=== PATIENT | female | born 1965 | race Caucasian/White ===

== ENCOUNTER 2017-02-01 17:35 | Emergency (ER) | payer OTHER ==
[2017-02-01 17:35] VITALS: BMI 36.6
[2017-02-01 17:48] VITALS: BP 161/93; PULSE 81; RESP 18; TEMP 98.1; O2SAT 100
[2017-02-01] MEDS ORDERED: Naproxen 500 MG TAB PO STA (18:06)
--- NOTE | 2017-02-01 18:16 | ED PDOC ---
Lower Extremity Pain/Injury Time Seen by Provider: 02/01/17 18:08 Chief Complaint (Nursing): Lower Extremity Problem/Injury Chief Complaint (Provider): Lower Extremity Problem/Injury History Per: Patient History/Exam Limitations: no limitations Onset/Duration Of Symptoms: Days Current Symptoms Are (Timing): Still Present Severity: Moderate Additional Complaint(s): Patient is a 51 year old female who presents to ED for evaluation of lower back pain and bilateral anterior upper thigh pain for 1 month. Patient states pain was present but tolerable until a few days ago when she stood up abruptly causing pain to worsen. Patient denies and trauma or falls. States taking Tylenol with no relief, last dose yesterday. Pain is described as burning but denies any rash Past Medical History Reviewed: Historical Data, Nursing Documentation, Vital Signs Vital Signs: Last Vital Signs Temp 98.1 F 02/01/17 17:45 Pulse 81 02/01/17 17:45 Resp 18 02/01/17 17:45 BP 161/93 H 02/01/17 17:45 Pulse Ox 100 02/01/17 17:45 - Medical History PMH: HTN - Surgical History Surgical History: No Surg Hx - Family History Family History: States: Unknown Family Hx - Living Arrangements Living Arrangements: With Family - Home Medications Home Medications: Ambulatory Orders Medication Instructions Recorded Ibuprofen [Motrin] 1 tab PO Q8 PRN #30 tab 08/26/16 Nitrofurantoin Macrocrystal 1 tab PO BID #14 capsule 08/26/16 [Nitrofurantoin] Tramadol HCl/Acetaminophen 1 tab PO Q6 PRN #12 tablet 08/26/16 [Ultracet Tablet] Naproxen [Naprosyn Tab] 1 tab PO Q8 PRN #21 tab 02/01/17 diaZEpam [Valium] 5 mg PO Q6 PRN #5 tab 02/01/17 - Allergies Allergies/Adverse Reactions: Allergies Allergy/AdvReac Type Severity Reaction Status Date / Time No Known Allergies Allergy Verified 02/01/17 17:45 Review of Systems Constitutional: Negative for: Fever, Weakness Cardiovascular: Negative for: Chest Pain Musculoskeletal: Positive for: Back Pain, Leg Pain Skin: Positive for: Rash Neurological: Negative for: Weakness, Numbness, Dizziness Physical Exam - Reviewed Nursing Documentation Reviewed: Yes Vital Signs Reviewed: Yes - Physical Exam Appears: Positive for: Non-toxic, No Acute Distress Skin: Positive for: Normal Color, Warm Eye Exam: Positive for: Normal appearance Neck: Positive for: Normal Back: Positive for: Normal Inspection, Other (Paraspinal tenderness, (+) striaght leg raise at 45 degrees ) Extremity: Positive for: Normal ROM. Negative for: Calf Tenderness Neurologic/Psych: Positive for: Alert, Oriented. Negative for: Motor/Sensory Deficits - ECG O2 Sat by Pulse Oximetry: 100 (RA) Pulse Ox Interpretation: Normal Medical Decision Making Medical Decision Making: Time: 1807 Initial Impression: Sciatica Initial Plan: -- Naproxen PO -- Valium PO Discussed today's findings with patient. All questions answered and patient expressed understanding. Stable for discharge. Attestation: Documented by Lani Garrett acting as a scribe for Radha Rowland PA-C. Provider Scribe Attestation: All medical record entries made by the Scribe were at my direction and personally dictated by me. I have reviewed the chart and agree that the record accurately reflects my personal performance of the history, physical exam, medical decision making, and the department course for this patient. I have also personally directed, reviewed, and agree with the discharge instructions and disposition. Disposition - Clinical Impression Clinical Impression: Sciatica - Patient ED Disposition Is Patient to be Admitted: No - Disposition Referrals: [facility] [Outside] Disposition: Routine/Home Disposition Time: 19:48 Condition: FAIR Prescriptions: Naproxen [Naprosyn Tab] 1 tab PO Q8 PRN #21 tab PRN Reason: Pain, Moderate (4-7) diaZEpam [Valium] 5 mg PO Q6 PRN #5 tab PRN Reason: Muscle Spasm Instructions: Sciatica (ED) Forms: [facility] ED School/Work Excuse Print Language: LAO
== END 2017-02-01 19:51 | disposition home or self-care (01) ==
LOC: H.ER 17:35
DX: M54.30 Sciatica, unspecified side (principal)

== ENCOUNTER 2018-06-03 18:32 | Emergency (ER) | payer OTHER ==
[2018-06-03 18:44] VITALS: RESP 16; TEMP 97.7; BMI 40.7
[2018-06-03] MEDS ORDERED: Tdap Vaccine 0.5 ml Vial (10-64 yrs) IM ONE ×2 (19:06→20:08)
--- NOTE | 2018-06-03 19:20 | ED PDOC ---
HPI: Trauma/Fall - HPI Time Seen by Provider: 06/03/18 18:49 Chief Complaint (Nursing): Trauma Chief Complaint (Provider): Trauma History Per: Patient, Family (daughter) History/Exam Limitations: no limitations Onset/Duration Of Symptoms: Mins (prior to arrival) Additional Complaint(s): 52 year old female presents to the ED with daughter for evaluation of injuries s /p a trip and fall incident. As per daughter, prior to arrival, patient was walking out of her house when she tripped and fell landing on her forehead and bilateral knees. She sustained a small abrasion to her forehead with bruising associated with mild dizziness, a 5/10 frontal headache, and bilateral knee pain right greater than left. Patient denies taking anticoagulants or any medications. Otherwise, (-) loss of consciousness, (-) nausea, (-) vomiting, (- ) chest pain, (-) abdominal pain, (-) vision changes, (-) hx of knee injury/ surgery (-) cough. Tetanus not up to date. LNMP: x3 weeks ago PMD: Jostin Rowland Past Medical History Reviewed: Historical Data, Nursing Documentation, Vital Signs Vital Signs: Last Vital Signs Temp 97.7 F 06/03/18 18:43 Pulse 86 06/03/18 18:43 Resp 16 06/03/18 18:43 BP 151/98 H 06/03/18 18:43 Pulse Ox 97 06/03/18 18:43 - Medical History PMH: HTN, Migraine - Surgical History Surgical History: Cholecystectomy - Family History Family History: States: Unknown Family Hx - Social History Current smoker - smoking cessation education provided: No Alcohol: None Drugs: Denies - Immunization History Hx Tetanus Toxoid Vaccination: No - Home Medications Home Medications: Ambulatory Orders Medication Instructions Recorded Ibuprofen [Motrin] 1 tab PO Q8 PRN #30 tab 08/26/16 Nitrofurantoin Macrocrystal 1 tab PO BID #14 capsule 08/26/16 [Nitrofurantoin] Tramadol HCl/Acetaminophen 1 tab PO Q6 PRN #12 tablet 08/26/16 [Ultracet Tablet] Naproxen [Naprosyn Tab] 1 tab PO Q8 PRN #21 tab 02/01/17 diaZEpam [Valium] 5 mg PO Q6 PRN #5 tab 02/01/17 Acetaminophen [Acetaminophen 8 650 mg PO Q8 #21 tablet.er 06/03/18 Hour] Meloxicam [Mobic] 15 mg PO DAILY #10 tab 06/03/18 - Allergies Allergies/Adverse Reactions: Allergies Allergy/AdvReac Type Severity Reaction Status Date / Time No Known Allergies Allergy Verified 06/03/18 18:43 Review of Systems ROS Statement: Except As Marked, All Systems Reviewed And Found Negative Eyes: Negative for: Vision Change Cardiovascular: Negative for: Chest Pain Gastrointestinal: Negative for: Nausea, Vomiting, Abdominal Pain Musculoskeletal: Positive for: Leg Pain (right knee pain worse than left) Skin: Positive for: Other (abrasion to mid forehead with bruising) Neurological: Positive for: Headache (frontal 5/10), Dizziness (mild). Negative for: Other (loss of consciousness) Physical Exam - Reviewed Nursing Documentation Reviewed: Yes Vital Signs Reviewed: Yes - Physical Exam Comments: GENERAL APPEARANCE: Patient is awake, alert, oriented x 3, in no acute distress. Patient is ambulatory in the ED. SKIN: Warm, dry; (-) cyanosis. HEAD: (-) palpable bony defect. (+) 2cm x 2cm hematoma to mid forehead with a central 2 mm abrasion, (+) localized tenderness (-) active bleeding EYES: (-) conjunctival pallor, (-) scleral icterus, (-) nystagmus. (-) periorbital tenderness, ecchymosis, or edema ENMT: Mucous membranes moist. Nose: (-) tenderness. No oral trauma, dentition intact and nontender. Pharynx clear, uvula midline. Airway patent: (-) stridor. Full ROM of mandible without pain. NECK: Supple, FROM (-) paracervical tenderness, (-) vertebral tenderness, (-) lymphadenopathy. CHEST AND RESPIRATORY: (-) chest wall tenderness. Lungs: (-) rales, (-) rhonchi , (-) wheezes; breath sounds equal bilaterally. Respirations even and nonlabored. HEART AND CARDIOVASCULAR: (-) irregularity; (-) murmur ABDOMEN AND GI: Soft; (-) tenderness (-) guarding (-) distention. BACK: (-) midline tenderness. LOWER EXTREMITIES: Left knee: Full ROM, (-) tenderness, (-) ecchymosis, (-) erythema. Right knee: (+) diffuse tenderness to anterior knee, full ROM but pain on flexion (-) ecchymosis, (-) erythema. Distal pulses 2+. Sensation intact throughout. NEURO AND PSYCH: GCS=15. Mental status as above. 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 EOMI and painless. (-) facial asymmetry. Tongue midline. Strength 5/5 in all extremities. No gross sensory deficits. Gait steady , speech clear. - ECG O2 Sat by Pulse Oximetry: 97 (RA) Pulse Ox Interpretation: Normal Medical Decision Making Medical Decision Making: Time: 1903 Initial Impression: facial and knee contusion s/p fall, closed head injury, abrasion Initial Plan: --CT head w/o contrast --CT maxillofacial w/o contrast --Right knee XR --Tetanus booster --Tylenol 650 mg PO --Re-evaluation 1957 XR knee: no fracture, no dislocation, as read by PA. Patient advised that official radiology read of XR is still pending and will call the patient if there is any discrepancy within [address] Head FINDINGS: Brain: No intracranial hemorrhage. No evidence of evolved territorial infarct or cerebral edema. No mass effect or midline shift. Ventricles: Unremarkable. No ventriculomegaly. Bones/joints: No acute osseous abnormality. Soft tissues: Mild frontal soft tissue swelling. Sinuses: Visualized paranasal sinuses are clear. Mastoid air cells: Trace right mastoid air cell opacification. IMPRESSION: No acute intracranial findings. 2013 CT Maxillofacial FINDINGS: Bones/joints: No acute osseous abnormality. Soft tissues: Mild frontal soft tissue swelling. Orbits: Unremarkable. Sinuses: Mild mucosal thickening of the left maxillary sinus. No air-fluid levels. IMPRESSION: No facial fracture. Axial images are not provided at time of initial preliminary interpretation. Interpretation is based on coronal and sagittal reformatted images. An addendum will be added if/when additional images become available. Addendum created by Helder Marrufo MD on 06/03/2018 8:35 PM Eastern Time ([place] & [place]) Axial source images are now available and reviewed. No additional findings. Initial Report created on 06/03/2018 8:14 PM Eastern Time ([place] & [place]) 2044 Forehead abrasion irrigated with normal saline. Bacitracin and Bandaid applied. HUI bandage applied to right knee by ED staff. Placement and application verified by Dpahne NEWTON. NV intact after placement. Repeat BP: 143/81 Repeat HR: 77 On re-evaluation, patient reports improvement of symptoms. Ambulating in ED with steady, unassisted gait. On exam, patient remains AAOx3, in no acute distress. Neck is supple, lungs CTA, cardiac RRR, abdomen is soft and non-tender , neuro exam shows no focal findings. VSS, stable for discharge. Diagnostic results d/w the patient in great detail. Dx of facial contusion/ abrasion, knee contusion, head injury s/p fall d/w the patient. Based on history, exam and diagnostic results plan will be for discharge and outpatient follow up. Advised to follow up with primary care physician in 1-2 days without fail. Advised to take medication as prescribed. Return to the emergency room at any time for any new or worsening symptoms. Patient states she fully agrees with and understands discharge instructions. States that she agrees with the plan and disposition. Verbalized and repeated discharge instructions and plan. I have given the patient opportunity to ask any additional questions. Scribe Attestation: Documented by Magali Cruz, acting as a scribe for Shahana Serna PA-C. Provider Scribe Attestation: All medical record entries made by the Scribe were at my direction and personally dictated by me. I have reviewed the chart and agree that the record accurately reflects my personal performance of the history, physical exam, medical decision making, and the department course for this patient. I have also personally directed, reviewed, and agree with the discharge instructions and disposition. Disposition - Clinical Impression Clinical Impression: Facial contusion, Facial abrasion, Knee contusion, Fall, Knee pain, acute - Patient ED Disposition Is Patient to be Admitted: No Counseled Patient/Family Regarding: Studies Performed, Diagnosis, Need For Followup, Rx Given - Disposition Referrals: Balwinder Rowland MD [Staff Provider] - Disposition: Routine/Home Disposition Time: 20:46 Condition: STABLE Additional Instructions: FOLLOW UP WITH PMD IN 1-2 DAYS FOR FURTHER EVALUATION WITHOUT FAIL. RETURN TO ED WITH ANY NEW OR WORSENING SYMPTOMS. Prescriptions: Acetaminophen [Acetaminophen 8 Hour] 650 mg PO Q8 #21 tablet.er Meloxicam [Mobic] 15 mg PO DAILY #10 tab Instructions: Skin Abrasions, Wound Care, Contusion (DC), Minor Head Injury, Knee Pain Forms: [employer] ([place]) Print Language: ICELANDIC - POA Present On Arrival: Falls Or Trauma
[2018-06-03] MEDS ORDERED: Bacitracin OINT 15GM TOP STA (20:46)
[2018-06-03 21:10] VITALS: BP 143/81; PULSE 77
--- NOTE | 2018-06-04 07:05 | RAD ---
Date of service: 06/03/2018 PROCEDURE: Right Knee Radiographs. HISTORY: s/p fall, joint pain COMPARISON: None. FINDINGS: BONES: Normal. No fracture. JOINTS: Medial osteoarthritis with marginal spur from the JOINT EFFUSION: None. OTHER FINDINGS: None. IMPRESSION: No for
--- NOTE | 2018-06-04 07:18 | CT ---
Date of service: 06/03/2018 PROCEDURE: CT HEAD WITHOUT CONTRAST. HISTORY: s/p fall COMPARISON: None available. TECHNIQUE: Axial computed tomography images were obtained through the head/brain without intravenous contrast. Radiation dose: Total exam DLP = mGy-cm. This CT exam was performed using one or more of the following dose reduction techniques: Automated exposure control, adjustment of the mA and/or kV according to patient size, and/or use of iterative reconstruction technique. FINDINGS: HEMORRHAGE: No intracranial hemorrhage. BRAIN: No mass effect or edema. No atrophy or chronic microvascular ischemic changes. VENTRICLES: Unremarkable. No hydrocephalus. CALVARIUM: Unremarkable. PARANASAL SINUSES: Unremarkable as visualized. No significant inflammatory changes. MASTOID AIR CELLS: Unremarkable as visualized. No inflammatory changes. OTHER FINDINGS: None. IMPRESSION: Normal CT of the Head.
--- NOTE | 2018-06-04 08:41 | CT ---
Date of service: 06/03/2018 PROCEDURE: CT MAXILLOFACIAL BONES WITHOUT CONTRAST HISTORY: s/p fall COMPARISON: None available. TECHNIQUE: Contiguous axial CT images of the maxillofacial bones were obtained. Coronal and sagittal reformats were generated. Radiation dose: Total exam DLP = mGy-cm. This CT exam was performed using one or more of the following dose reduction techniques: Automated exposure control, adjustment of the mA and/or kV according to patient size, and/or use of iterative reconstruction technique. FINDINGS: NASAL BONES: Unremarkable. ORBITS: Unremarkable. PARANASAL SINUSES/ MASTOIDS: Clear. MAXILLA: Unremarkable. MANDIBLE/ TEMPOROMANDIBULAR JOINTS: Unremarkable. SKULL BASE: Unremarkable. TEMPORAL BONES: Middle ears and mastoid grossly unremarkable. OTHER FINDINGS: None. IMPRESSION: Unremarkable non contrast enhanced CT of the maxillofacial bones.
[2018-06-04 19:17] VITALS: O2SAT 97
== END 2018-06-03 21:09 | disposition home or self-care (01) ==
LOC: H.ER 18:32
DX: S00.81XA Abrasion of other part of head, initial encounter (principal); S00.83XA Contusion of other part of head, initial encounter; S80.01XA Contusion of right knee, initial encounter; W01.0XXA Fall on same level from slipping, tripping and stumbling without subsequent striking against object, initial encounter; Y92.89 Other specified places as the place of occurrence of the external cause